=== PATIENT | female | born 1985 ===

== ENCOUNTER 2018-09-26 16:25 | Emergency (ER) | payer OTHER ==
[2018-09-26 16:43] VITALS: BP 115/67; PULSE 59; RESP 16; TEMP 97.8; O2SAT 100
[2018-09-26] MEDS ORDERED: Iohexol 240 (50 ml) PO STA (17:04)
--- NOTE | 2018-09-26 17:09 | ED PDOC ---
HPI: Abdomen Time Seen by Provider: 09/26/18 16:50 Chief Complaint (Nursing): Wound Check Chief Complaint (Provider): Abdominal Pain, Wound Care History Per: Patient History/Exam Limitations: no limitations, language barrier (sami speaking, friend at bedside translating with pt's permission) Onset/Duration Of Symptoms: Days (x2 weeks) Outside of [place] travel?: Yes Other Location:: [facility] Current Symptoms Are (Timing): Still Present Additional Complaint(s): 33 year old female presents to the ED for evaluation of lower abdominal pain and possible infection s/p tubal ligation reversed 6 weeks ago. Patient states a while ago after having one child she had a tubal ligation, but recently wished to have more children so went to [facility] 6 weeks ago to have the procedure reversed. Immediately after the procedure, patient notes feeling good, but then two weeks ago, developed lower abdominal pain to the the site of the incision associated with a headache. She notes the wound was having some foul smelling pus and was worried about infection. Has not been taking any medications. Pt denies fever, chills, nausea or vomiting, urinary symptoms, vaginal discharge, changes in bowel movements LNMP: 09/12/18 LNBM: today, x2 PMD: none provided Past Medical History Reviewed: Historical Data, Nursing Documentation, Vital Signs Vital Signs: Last Vital Signs Temp 97.8 F 09/26/18 16:39 Pulse 59 L 09/26/18 16:39 Resp 16 09/26/18 16:39 BP 115/67 09/26/18 16:39 Pulse Ox 100 09/26/18 16:39 - Medical History PMH: No Chronic Diseases - Surgical History Surgical History: Cholecystectomy Other surgeries: tubal ligation; tubal ligation reversal - Family History Family History: States: Unknown Family Hx - Social History Current smoker - smoking cessation education provided: No Alcohol: None Drugs: Denies - Home Medications Home Medications: Ambulatory Orders Medication Instructions Recorded Naproxen 500 mg PO BID PRN #20 tab 09/26/18 - Allergies Allergies/Adverse Reactions: Allergies Allergy/AdvReac Type Severity Reaction Status Date / Time No Known Allergies Allergy Verified 09/26/18 16:36 Review of Systems ROS Statement: Except As Marked, All Systems Reviewed And Found Negative Constitutional: Negative for: Fever Gastrointestinal: Positive for: Abdominal Pain (lower with a linear incision). Negative for: Nausea, Vomiting, Diarrhea, Constipation Genitourinary Female: Negative for: Vaginal Discharge Neurological: Positive for: Headache Physical Exam - Reviewed Nursing Documentation Reviewed: Yes Vital Signs Reviewed: Yes - Physical Exam Comments: GENERAL APPEARANCE: Patient is awake, alert, oriented x 3, in mild painful distress. SKIN: Warm, dry; (-) cyanosis. EYES: (-) conjunctival pallor, (-) scleral icterus. ENMT: Mucous membranes moist. NECK: (-) tenderness, (-) stiffness, (-) lymphadenopathy. CHEST AND RESPIRATORY: (-) rales, (-) rhonchi, (-) wheezes; breath sounds equal bilaterally. HEART AND CARDIOVASCULAR: (-) irregularity; (-) murmur, (-) gallop. ABDOMEN AND GI: Soft. (-) distention. Bowel sounds active; (+) diffuse lower abdomen tenderness, primarily RLQ and suprapubic tenderness, (+) guarding, (-) rebound, (-) palpable masses, (-) CVA tenderness. (+) well healed linear scar to suprapubic region, (-) surrounding erythema, (-) drainage, (-) fluctuance, (-) induration, (-) signs of infection. EXTREMITIES: (-) deformity, (-) edema, (+) distal pulses. NEURO AND PSYCH: Mental status as above; (-) focal findings. - Laboratory Results Result Diagrams: 09/26/18 17:20 09/26/18 17:20 - ECG O2 Sat by Pulse Oximetry: 100 (RA) Pulse Ox Interpretation: Normal Medical Decision Making Medical Decision Making: Initial Impression: lower abdominal pain in setting of recent abdominal surgery Time: 1701 Initial Plan: --Will obtain CT abdomen and pelvis IV and PO contrast secondary to patient's diffuse tenderness --CMP --U-preg --CBC with differential --Toradol 30mg IM --Urinalysis --Reevaluate 2119 CT FINDINGS: LUNG BASES: The lung bases appear clear. No pleural effusions are seen. LIVER: Unremarkable. GALLBLADDER AND BILE DUCTS: Status post cholecystectomy. No biliary ductal dilatation is evident. PANCREAS: Unremarkable. SPLEEN: Unremarkable. ADRENAL GLANDS: Unremarkable. KIDNEYS, URETERS, AND BLADDER: The kidneys appear within normal limits. There is no hydronephrosis or hydrouret er. No urinary calculi are seen. The urinary bladder appeared normal in size and configuration. STOMACH AND BOWEL: Unremarkable appearance of the stomach and bowel. No evidence of bowel obstruction. No evidence suggesting enteritis or colitis. APPENDIX: No evidence of acute appendicitis on CT examination. PERITONEUM: No free fluid. No free air. LYMPH NODES: No lymphadenopathy is evident. REPRODUCTIVE: There are parauterine and left el-ovarian varices identified. This may indicate the presence of pelvic congestion syndrome. VASCULATURE: No evidence of abdominal aortic aneurysm. BONES: No aggressive appearing osseous lesion. No acute osseous pathology evident. Mild levoscoliosis of the lumbar spine noted with the apex at L3. IMPRESSION: 1. No acute intra-abdominal or pelvic abnormality. 2. Findings compatible with pelvic congestion syndrome as described above. 3. Status post cholecystectomy. 21:[address] Carey, recommends US to ensure blood flow to ovaries used language line [id number] to discussed with pt the findings on CT and plan for US, pt reports her pain has been controlled since getting meds, abdomen is soft, mild tenderness in RLQ 23:05 EXAM: US Pelvis, Complete Transvaginal and Transabdominal COMPARISON: CT - ABD PELVIS PO IV CONTRAST - 09/26/2018 08:11 PM EDT CLINICAL HISTORY: Rlq pelvic pain TECHNIQUE: Transvaginal and transabdominal pelvic ultrasound (complete) with image documentation. FINDINGS: ENDOMETRIUM: Endometrial stripe measures 1.1 cm. UTERUS/CERVIX: Uterus measures 7.9 x 4.3 x 5.3 cm and appears retroverted. There is a Nabothian cyst at the cervix measuring 0.7 cm. RIGHT OVARY: Right ovary measures 2.7 x 2.1 x 2.0 cm and demonstrates normal Doppler flow. LEFT OVARY: Left ovary measures 4.1 x 1.8 x 2.4 cm and demonstrates normal Doppler flow. FREE FLUID: No free fluid. MISCELLANEOUS: Incidentally noted are multiple peristalsing loops of bowel in the right lower quadrant at the region of interest. No abnormal appendix is identified on scanning the right lower quadrant. This does not exclude appendicitis. No adnexal lesions are identified. IMPRESSION: 1. Multiple peristalsing loops of bowel in the right lower quadrant at the region of interest. 2. No abnormal appendix is identified on scanning the right lower quadrant. This does not exclude appendicitis. 3. Normal appearance of the uterus and ovaries. Electronically signed on Sep 26, 2018 11:04:29 PM EDT by: Devon Cummings M.D., M.B.A., Certified By [employer] Trained MRI and CT Specialist 23:06 re eval pain is controlled, abdomen is soft and non tender Discussed results, diagnosis, treatment, return precautions and f/u with pt who is understanding, in agreement and stable for dc ------ Scribe Attestation: Documented by Sandy Frank acting as a scribe for Johnathon Leone PA-C. Provider Scribe Attestation: All medical record entries made by the Scribe were at my direction and personally dictated by me. I have reviewed the chart and agree that the record accurately reflects my personal performance of the history, physical exam, medical decision making, and the department course for this patient. I have also personally directed, reviewed, and agree with the discharge instructions and disposition. Disposition - Clinical Impression Clinical Impression: Pelvic congestion syndrome - Patient ED Disposition Is Patient to be Admitted: No Counseled Patient/Family Regarding: Studies Performed, Diagnosis, Need For Followup, Rx Given - Disposition [facility] [Outside] Disposition: Routine/Home Disposition Time: 23:07 Condition: IMPROVED Additional Instructions: Janet por dejarnos cuidar de ti hoy. Regrese a la ED para sntomas nuevos o que empeoran, fiebre> 100.4, nusea o vmitos, dolor en aumento, sntomas urinarios. Jett un seguimiento con la clnica earl se indica. yumiko la medicacin segn lo prescrito. La atencin mdica de emergencia que recibi hoy se dirigi a peter sntomas agudos. Si le recetaron algn medicamento, llnelo y tmelo segn las indicaciones. Los sntomas pueden tardar varios jeffery en resolverse. Regrese al Departamento de Emergencias si peter sntomas empeoran, no mejoran o si tiene otros problemas. Comunquese con goldstein mdico dentro de 2 jeffery para mahesh nueva evaluacin y jett un seguimiento o llame a ritchie de los mdicos / clnicas a los que burton sido referido y que figuran en el formulario de Informacin de visita al paciente que se incluye en goldstein paquete de jorge. Lleve todos los documentos que recibi al momento del jorge junto con los medicamentos que est tomando para goldstein visita de seguimiento. Nuestro tratamiento no puede reemplazar la atencin mdica continua por parte de un proveedor de atencin primaria (PCP) fuera del departamento de emergencias. Prescriptions: Naproxen 500 mg PO BID PRN #20 tab PRN Reason: Pain, Moderate (4-7) Instructions: Acute Abdomen (Belly Pain), Adult (DC), Acute Pelvic Pain (DC) Forms: [facility] (Nepalese) Print Language: TELUGU - POA Present On Arrival: None
[2018-09-26] MEDS ORDERED: Iohexol 240 (50 ml) ONE (17:21)
[2018-09-26 18:02] LABS: BASO % 0.6 % (0.0-2.0); EOS # 0.1 K/uL (0.0-0.7); EOS % 1.6 % (0.0-4.0); LYMPH # 1.5 K/uL (1.0-4.3); LYMPH % 24.8 % (20.0-40.0); MEAN CORPUSCULAR HEMOGLOBIN 29.6 pg (27.0-31.0); MEAN CORPUSCULAR HGB CONC 33.3 g/dL (33.0-37.0); MEAN PLATELET VOLUME 9.1 fl (7.2-11.7); MONO # 0.5 K/uL (0.0-0.8); MONO % 7.6 % (0.0-10.0); NEUT % 65.4 % (50.0-75.0); NRBC % 0.1 % (0.0-0.0); RBC 4.38 Mil/uL (3.80-5.20); RED CELL DISTRIBUTION WIDTH 12.9 % (11.5-14.5); WHITE BLOOD COUNT 6.2 K/uL (4.8-10.8)
[2018-09-26 18:11] LABS: SQUAMOUS EPITHIAL 6 /hpf (0-5); URINE BACTERIA RARE (<OCC); URINE BILIRUBIN NEGATIVE (NEGATIVE); URINE BLOOD SMALL (NEGATIVE); URINE CLARITY SLIGHTY-CLOUDY (Clear); URINE COLOR STRAW (YELLOW); URINE GLUCOSE (UA) NEG (NEGATIVE); URINE LEUKOCYTE ESTERASE NEG Leu/uL (Negative); URINE PROTEIN NEGATIVE (NEGATIVE); URINE UROBILINOGEN 0.2-1.0 mg/dL (0.2-1.0)
[2018-09-26 18:23] LABS: ALB/GLOB RATIO 1.6 (1.0-2.1); ALBUMIN 4.7 g/dL (3.5-5.0); ALT/SGPT 24 U/L (9-52); AST/SGOT 22 U/L (14-36); BLOOD UREA NITROGEN 12 mg/dl (7-17); CALCIUM 9.8 mg/dL (8.4-10.2); GFR NON-AFRICAN AMERICAN > 60
[2018-09-26] MEDS ORDERED: Iohexol 300 100 ML IJ ONE (19:45)
[2018-09-26] MEDS ORDERED: Sodium Chloride 0.9% 50 ML IV ONE (19:45)
--- NOTE | 2018-09-27 10:22 | CT ---
Date of service: 09/26/2018 PROCEDURE: CT Abdomen and Pelvis with contrast HISTORY: r/o appy vs infection COMPARISON: None. TECHNIQUE: Following oral and intravenous contrast administration, a CT examination of the abdomen and pelvis was performed from the domes of the diaphragms to the symphysis pubis with reformatted datasets provided not only axial but also sagittal and coronal series. Contrast dose: Omnipaque 300, 100 cc Radiation dose: Total exam DLP = 345.76 mGy-cm. This CT exam was performed using one or more of the following dose reduction techniques: Automated exposure control, adjustment of the mA and/or kV according to patient size, and/or use of iterative reconstruction technique. FINDINGS: LOWER THORAX: Unremarkable. LIVER: Unremarkable. No gross lesion or ductal dilatation. GALLBLADDER AND BILE DUCTS: Prior cholecystectomy identified. PANCREAS: Unremarkable. No gross lesion or ductal dilatation. SPLEEN: Unremarkable. ADRENALS: Unremarkable. No mass. KIDNEYS AND URETERS: Unremarkable. No hydronephrosis. No solid mass. VASCULATURE: Unremarkable. No aortic aneurysm. No aortic atherosclerotic calcification or mural plaque present. BOWEL: Stomach is mildly distended with retained food and oral contrast material and is otherwise unremarkable appearing. No bowel obstruction identified. Small bowel loops appear adequately opacified and are unremarkable appearing. Moderate fecal loading seen the right hemicolon with remainder of the colon largely collapsed. No gross mural thickening appreciable. No pericolic or small-bowel local reaction appreciable. APPENDIX: Normal appendix. PERITONEUM: Unremarkable. No free fluid. No free air. LYMPH NODES: Unremarkable. No enlarged lymph nodes. BLADDER: Unremarkable. REPRODUCTIVE: Left gonadal vein is somewhat prominent as well as venous structures in the left adnexal compartment suggestive of pelvic congestion. BONES: No acute fracture. OTHER FINDINGS: None. IMPRESSION: 1. Typically normal appendix. No acute right lower quadrant abdominal findings. 2. Prior cholecystectomy. 3. Left venous pelvic congestion as discussed above. Concordant preliminary report from [facility], 09/26/2018, 9:15 p.m..
--- NOTE | 2018-09-27 11:30 | US ---
Date of service: 09/26/2018 HISTORY: Right lower quadrant pain. Torsion suspected. LMP 09/12/2018. COMPARISON: September 26, 2018. CT abdomen and pelvis. TECHNIQUE: Transvaginal only. Real -time technique with 2D, duplex and color Doppler FINDINGS: UTERUS: Measures 4.3 x 5.3 x 7.9 cm. Normal in size and appearance. No fibroid or other mass lesion seen. ENDOMETRIUM: Measures 10.7 mm in diameter. No ultrasound findings to suggest gestational sac, fluid, debris, mass or polyp or other pathologic process within the endometrium. CERVIX: No cervical abnormality identified.Incidental finding: Nabothian cysts the largest measures 7 mm. RIGHT OVARY: Measures 2 x 2.1 x 2.7 cm. No solid mass. Normal flow. Multiple subcentimeter follicles. LEFT OVARY: Measures 1.8 x 2.4 x 4.1 cm. No solid mass. Normal flow. Multiple subcentimeter follicles. FREE FLUID: No significant free fluid noted. OTHER FINDINGS: None. IMPRESSION: No significant or acute findings to account for/ related to the clinical presentation. Additional benign and/or incidental findings described above. Concordant findings (preliminary report) provided by [facility].
== END 2018-09-26 23:12 | disposition home or self-care (01) ==
LOC: H.ER 16:25
DX: N94.89 Other specified conditions associated with female genital organs and menstrual cycle (principal)
CPT/HCPCS: 74177; 76830; 80053; 81003; 81025; 85025; 96374; 99283; J1885; Q9966; Q9967